=== PATIENT | female | born 1945 | race Caucasian/White ===

== ENCOUNTER → 2016-09-29 | Outpatient (CLI) | payer MEDICARE, OTHER ==
--- NOTE | 2016-09-29 10:53 | RAD ---
DATE: 09/29/2016 EXAM: DIGITAL SCREEN BILAT W/CAD HISTORY: Screening COMPARISON: 05/30/2015 This study was interpreted with the benefit of Computerized Aided Detection (CAD). FINDINGS: Breast Density: SCATTERED The breast parenchyma shows scattered fibroglandular densities. Breast parenchyma level B. There is a density, probably reflecting summation artifact on the cc view of the left breast. Additional cone compression imaging and rolled imaging is suggested for confirmation the right breast appears unremarkable and unchanged IMPRESSION: Density in the left breast likely reflecting summation artifact. Additional imaging suggested as outlined above BI-RADS CATEGORY: 0 INCOMPLETE: NEED ADDITIONAL IMAGING EVAULATION AND/OR PRIOR MAMMOGRAMS FOR COMPARISON RECOMMENDED FOLLOW-UP: ADD ADDITIONAL IMAGING PQRS compliance statement: Patient information was entered into a reminder system with a target due date soon for the next mammogram. Mammography is a sensitive method for finding small breast cancers, but it does not detect them all and is not a substitute for careful clinical examination. A negative mammogram does not negate a clinically suspicious finding and should not result in delay in biopsying a clinically suspicious abnormality. "Our facility is accredited by the [employer] Mammography [employer]."
== END | disposition home or self-care (01) ==
LOC: MAMMO 09:41
PROVIDERS: ATTEND Family Medicine
DX: Z12.31 Encounter for screening mammogram for malignant neoplasm of breast (principal)
CPT/HCPCS: G0202; 77067

== ENCOUNTER → 2016-10-06 | Outpatient (CLI) | payer MEDICARE, OTHER ==
--- NOTE | 2016-10-06 14:39 | RAD ---
DATE: 10/06/2016 EXAM: DIGITAL DIAGNOSTIC LT, BREAST LEFT HISTORY: Suspicious screening study COMPARISON: 09/29/2016 This study was interpreted with the benefit of Computerized Aided Detection (CAD). The breast parenchyma shows scattered fibroglandular densities. Breast parenchyma level B. FINDINGS: Additional spot compression and straight mediolateral views of the left breast were obtained and compared to the screening study. There is a persistent ill-defined area of increased density in the posterior aspect of the left breast centered just inferior and lateral to the midline of the breast. This was not evident on older studies. There are scattered calcifications in the left breast which have slowly progressed since previous studies. No definite malignant type microcalcifications are seen. Left breast ultrasound, 10/06/2016: A targeted ultrasound exam of left breast was performed centered in the 2:00 to 6:00 regions. The breast tissues in the retroareolar region in this patient are quite heterogeneous with mildly dilated ducts evident. There is debris in some of these ducts. At the 6:00 location approximately 3 cm in the nipple there is an elongated 2 x 5 x 6 mm hypoechoic structure most compatible with a complicated cyst. This does not appear to correspond in size or shape to the mammographic abnormality. At the 2-3:00 location approximately 2 cm from the nipple there is a 5 x 5 x 10 mm oval-shaped nodule with low level heterogeneous internal echoes. No internal color flow is seen. This may be a complicated cyst or solid nodule. IMPRESSION: 1. Suspicious mammographic density located just lateral and inferior to the midline of the left breast without a clear sonographic correlate. 2. The targeted left breast ultrasound exam demonstrates heterogeneous breast tissues with debris in retroareolar ducts as well as possible complicated cysts as described above. Breast MR is suggested for further evaluation. BI-RADS CATEGORY: 0 INCOMPLETE: NEEDS ADDITIONAL IMAGING EVALUATION AND/OR PRIOR MAMMOGRAMS FOR COMPARISON. RECOMMENDED FOLLOW-UP: ADD ADDITIONAL IMAGING PQRS compliance statement: Patient information was entered into a reminder system with a target due date for the next mammogram. Mammography is a sensitive method for finding small breast cancers, but it does not detect them all and is not a substitute for careful clinical examination. A negative mammogram does not negate a clinically suspicious finding and should not result in delay in biopsying a clinically suspicious abnormality. "Our facility is accredited by the [employer] Mammography [employer]."
== END | disposition home or self-care (01) ==
LOC: MAMMO 12:49
PROVIDERS: ATTEND Family Medicine
DX: R92.8 Other abnormal and inconclusive findings on diagnostic imaging of breast (principal)
CPT/HCPCS: 76641; G0206; 77065